=== PATIENT | female | born 1975 | race Caucasian/White ===

== ENCOUNTER → 2018-01-27 | Outpatient (REF) | payer BC | LOC: M SFHCLERA 12:56 | DX: J02.9 Acute pharyngitis, unspecified (principal) ==

== ENCOUNTER 2018-10-28 09:55 | Emergency (ER) | payer BC ==
[~2018-10-28] VITALS: Ht 154.9 cm; Wt 88.6 kg
[2018-10-28] MEDS ORDERED: KETOROLAC 30 MG/ML VIAL (J1885) IV ONE (10:45)
[2018-10-28 10:52] LABS: BASO # 0.1 10^3/uL (0.0-0.2); BASO % 0.8 % (0.0-1.0); EOS # 0.2 10^3/uL (0.0-0.50); EOS % 3.2 % (0.0-3.0); HEMATOCRIT 42.7 % (36.0-47.0); HEMOGLOBIN 13.5 g/dl (12.0-15.5); LYMPH # 2.2 10^3/uL (1.5-4.5); LYMPH % 30.2 % (24.0-44.0); MEAN CORPUSCULAR HGB CONC 31.6 g/dl (32.0-36.5); MEAN CORPUSCULAR VOLUME 91.6 fl (80.0-96.0); MONO # 0.5 10^3/uL (0.0-0.8); MONO % 6.9 % (0.0-5.0); NEUTROPHILS # 4.3 10^3/uL (1.8-7.7); NEUTROPHILS % 58.6 % (36.0-66.0); PLATELET COUNT, AUTOMATED 242 10^3/uL (150-450); RED BLOOD COUNT 4.66 10^6/uL (4.00-5.40); WHITE BLOOD COUNT 7.3 10^3/uL (4.0-10.0)
[2018-10-28 11:03] VITALS: BP 160/90
[2018-10-28] MEDS ORDERED: BUPR300T34 PO (11:05)
[2018-10-28 11:18] LABS: ALBUMIN 4.2 GM/DL (3.2-5.2); ALT/SGPT 18 U/L (12-78); AMYLASE 36 U/L (25-115); BILIRUBIN,DIRECT < 0.1 MG/DL (0.0-0.2); BILIRUBIN,TOTAL 0.5 MG/DL (0.2-1.0); BLOOD UREA NITROGEN 13 MG/DL (7-18); CALCIUM LEVEL 8.7 MG/DL (8.5-10.1); CARBON DIOXIDE LEVEL 30 MEQ/L (21-32); CHLORIDE LEVEL 108 MEQ/L (98-107); GLOMERULAR FILTRATION RATE > 60.0 (>58); GLUCOSE, FASTING 89 MG/DL (70-100); LIPASE 155 U/L (73-393); POTASSIUM SERUM 4.1 MEQ/L (3.5-5.1); SODIUM LEVEL 141 MEQ/L (136-145); TOTAL PROTEIN 7.4 GM/DL (6.4-8.2)
[2018-10-28] MEDS ORDERED: INDO25CA PO (11:40)
--- NOTE | 2018-10-28 11:56 | REP ---
GALLBLADDER ULTRASOUND: 10/28/2018 CLINICAL HISTORY: Right upper quadrant pain. States gallbladder function diminished with only 30% ejection fraction. FINDINGS: There were no prior studies. Liver is homogeneous in echotexture. There is no hepatic mass, intrahepatic biliary dilatation, or ascites. No hepatic cyst. The gallbladder is elongated. Wall thickness of 2.2 mm was unremarkable. There is no stone, sludge, or pericholecystic fluid. However, there was a positive sonographic Avalos sign. Common duct is 3 mm in diameter without a filling defect, but somewhat limited in evaluation on this exam. Likewise, the pancreas is only limited in evaluation due to gas shadowing. Those segments seen were unremarkable. The right kidney is 10 x 5.9 x 5.8 cm and without hydronephrosis or stone. No generalized ascites. IMPRESSION: 1. Some mild tenderness with sonographic Avalos sign in the right upper quadrant but no visible stone, sludge, wall thickening, or pericholecystic fluid. 2. The liver, common duct are unremarkable. Limited evaluation of the pancreas due to gas shadowing. Those areas seen were unremarkable. 3. The right kidney unremarkable. Electronically Signed by Mert Carrillo MD 10/28/2018 06:36 P
== END 2018-10-28 11:47 | disposition home or self-care (01) ==
LOC: M ED 09:55
DX: K80.20 Calculus of gallbladder without cholecystitis without obstruction (principal); Z79.899 Other long term (current) drug therapy; Z88.0 Allergy status to penicillin
CPT/HCPCS: 76705; 80048; 80076; 81001; 81025; 82150; 83690; 85025; 87086; 96374; 99284; J1885

== ENCOUNTER → 2020-07-29 | Outpatient (CLI) | payer SELFPAY ==
[~2020-07-29] MED LIST: BUPR300T92 PO; INDO-16 PO
== END ==
LOC: M LABSMTC 14:15
PROVIDERS: ATTEND Pediatrics
DX: Z20.828 Contact with and (suspected) exposure to other viral communicable diseases (principal)

== ENCOUNTER 2023-08-18 09:22 | Emergency (ER) | payer BC ==
[~2023-08-18] VITALS: Ht 154.9 cm; Wt 81.8 kg
[2023-08-18] MEDS ORDERED: METH-1164 PO (15:04)
[2023-08-18 15:09] VITALS: BP 138/65; TEMP 97.8; O2SAT 99
== END 2023-08-18 15:11 | disposition home or self-care (01) ==
LOC: M ED 09:22
DX: M50.30 Other cervical disc degeneration, unspecified cervical region (principal); I10 Essential (primary) hypertension; K21.9 Gastro-esophageal reflux disease without esophagitis; Z88.0 Allergy status to penicillin; Z79.899 Other long term (current) drug therapy

== ENCOUNTER 2024-01-11 18:53 | Emergency (ER) | payer BC ==
[~2024-01-11] VITALS: Ht 154.9 cm; Wt 90.6 kg
[~2024-01-11 18:53] MED LIST changes: +BUPR-597 PO; -BUPR300T92 PO; +METH-1164 PO
[2024-01-11] MEDS ORDERED: LOSA25TA13 PO (19:01)
[2024-01-11] MEDS ORDERED: BYST5TAB2 PO (19:01)
[2024-01-11 20:03] LABS: BASO # 0.1 10^3/uL (0.0-0.2); BASO % 0.4 % (0.0-1.0); EOS # 0.2 10^3/uL (0.0-0.5); EOS % 1.8 % (0.0-3.0); HEMATOCRIT 43.8 % (36.0-47.0); HEMOGLOBIN 13.9 g/dl (12.0-15.5); LYMPH # 1.6 10^3/uL (1.5-5.0); MEAN CORPUSCULAR HEMOGLOBIN 28.1 pg (27.0-33.0); MEAN CORPUSCULAR HGB CONC 31.7 g/dl (32.0-36.5); MEAN CORPUSCULAR VOLUME 88.7 fl (80.0-96.0); MONO # 0.5 10^3/uL (0.0-0.8); MONO % 4.7 % (2.0-8.0); NEUTROPHILS # 8.9 10^3/uL (1.5-8.5); NEUTROPHILS % 78.9 % (36.0-66.0); PLATELET COUNT, AUTOMATED 261 10^3/uL (150-450); RED BLOOD COUNT 4.94 10^6/uL (4.00-5.40); WHITE BLOOD COUNT 11.3 10^3/uL (4.0-10.0)
[2024-01-11 20:35] LABS: INR 1.03; PROTHROMBIN TIME 13.2 SECONDS (12.5-14.5)
[2024-01-11 20:40] LABS: CK-MB VALUE MASS < 1.0 NG/ML (<3.6)
[2024-01-11 20:41] LABS: LIPASE 42 U/L (12-53)
[2024-01-11 20:43] LABS: ALBUMIN 4.1 G/DL (3.2-5.2); ALKALINE PHOSPHATASE 68 U/L (46-116); ALT/SGPT 34 U/L (7.0-40); AST/SGOT 15 U/L (<34); BILIRUBIN,DIRECT 0.1 MG/DL (<0.4); BILIRUBIN,TOTAL 0.4 MG/DL (0.3-1.2); BLOOD UREA NITROGEN 16 MG/DL (9-23); CALCIUM LEVEL 9.4 MG/DL (8.5-10.1); CARBON DIOXIDE LEVEL 29 MMOL/L (20-31); CHLORIDE LEVEL 107 MMOL/L (98-107); CREATININE FOR GFR 0.82 MG/DL (0.55-1.30); GLOMERULAR FILTRATION RATE > 60.0 (>58); GLUCOSE, FASTING 93 MG/DL (60-100); POTASSIUM SERUM 4.1 MMOL/L (3.5-5.1); SODIUM LEVEL 142 MMOL/L (136-145); TOTAL PROTEIN 7.5 G/DL (5.7-8.2)
[2024-01-11 20:44] LABS: CPK CREATINE PHOSPHOKINASE 267 U/L (34-145); MB/CK RELATIVE INDEX 0.37 (< OR =4)
[2024-01-11] MEDS ORDERED: ISOVUE-370 76% 100ML VIAL As Ordered ONE (22:29)
[2024-01-11 22:30] LABS: CK-MB VALUE MASS < 1.0 NG/ML (<3.6)
[2024-01-11 22:31] LABS: CPK CREATINE PHOSPHOKINASE 259 U/L (34-145); MB/CK RELATIVE INDEX 0.38 (< OR =4)
[2024-01-11] MEDS: NS 1,000 ML IV ONE (22:35)
[2024-01-11 23:12] LABS: RSV AMPLIFICATION NEGATIVE (NEGATIVE)
[2024-01-12 00:33] VITALS: BP 135/71; TEMP 97.9; O2SAT 99
== END 2024-01-12 00:41 | disposition home or self-care (01) ==
LOC: M ED 18:53
DX: R07.89 Other chest pain (principal); I10 Essential (primary) hypertension; K21.9 Gastro-esophageal reflux disease without esophagitis; Z87.891 Personal history of nicotine dependence; Z88.0 Allergy status to penicillin; Z79.899 Other long term (current) drug therapy
CPT/HCPCS: 71045; 71275; 80048; 80076; 82550; 82553; 83690; 84484; 85025; 85610; 87631; 93005; 93041; 94760; 96360; 99285; Q9967